=== PATIENT | female | born 1955 | race Caucasian/White ===

== ENCOUNTER 2018-07-09 11:20 | Inpatient (IN) | payer MEDICARE, MEDICAID ==
[~2018-07-09] VITALS: Ht 162.6 cm; Wt 56.4 kg
--- NOTE | 2018-07-09 11:20 | NUR ---
PT BIBA RA 79 syncopal episode "From clinic fainted BS 123", PT IS AAOX3 KITTITIAN SPEAKING, NOT IN RESPIRATORY DISTRESS, V/S STABLE, KEPT RESTED AND COMFORTABLE.
--- NOTE | 2018-07-09 11:24 | NUR ---
DR. BARBA AT BEDSIDE FOR EVAL.
--- NOTE | 2018-07-09 11:34 | NUR ---
LABS DRAWNED AND SENT TO LAB. AWAITING RESULTS.
[2018-07-09 11:37] LABS: BASOPHILS % (AUTO) 0.4 % (0.0-2.0); HEMATOCRIT 40 % (33-45); LYMPHOCYTES # (AUTO) 0.3 /CMM (0.8-4.8); MEAN CORPUSCULAR HGB CONC 35 g/dl (31.0-36.0); MEAN CORPUSCULAR VOLUME 90 fL (82-100); MONOCYTES % (AUTO) 23.2 % (2.0-12.0); NEUTROPHILS # (AUTO) 2.8 /CMM (1.8-8.9); NEUTROPHILS % (AUTO) 65.4 % (43.0-81.0); PLATELET COUNT (AUTO) 221 /CMM (150-450); RED BLOOD CELL COUNT(AUTO) 4.45 MIL/uL (4.0-5.2); WHITE BLOOD COUNT (AUTO) 4.2 K/uL (4.3-11.0)
[2018-07-09 11:43] LABS: CALCIUM, SERUM 8.5 mg/dL (8.5-10.1); CARBON DIOXIDE 28 mmol/L (21-32); CHLORIDE 92 mmol/L (98-107); CREATININE 0.6 mg/dL (0.6-1.3); GLUCOSE 108 mg/dL (74-106); POTASSIUM 3.2 mmol/L (3.5-5.1); SODIUM SERUM 127 mmol/L (136-145); UREA NITROGEN, BLOOD 7 mg/dL (7-18)
[2018-07-09] MEDS ORDERED: SIMV20TA2 PO (11:45)
[2018-07-09] MEDS ORDERED: MYCO250C PO (11:45)
[2018-07-09] MEDS ORDERED: CHOL100044 PO (11:45)
[2018-07-09] MEDS ORDERED: ATEN50TA PO (11:45)
[2018-07-09] MEDS ORDERED: FAMO-131 PO (11:45)
[2018-07-09] MEDS ORDERED: GABA-532 PO (11:45)
[2018-07-09] MEDS ORDERED: ASPI-1169 PO (11:45)
[2018-07-09] MEDS ORDERED: ALBU6.7H IH (11:45)
[2018-07-09] MEDS ORDERED: LOSA100T31 PO (11:45)
[2018-07-09] MEDS ORDERED: CARB200T PO (11:45)
[2018-07-09] MEDS ORDERED: PRED20TA PO (11:45)
[2018-07-09] MEDS ORDERED: CYCL5TAB PO (11:45)
[2018-07-09] MEDS ORDERED: IPRA12.9 IH (11:45)
[2018-07-09] MEDS ORDERED: HYDR-4076 PO (11:45)
[2018-07-09] MEDS ORDERED: CALC-7 PO (11:45)
[2018-07-09 11:49] LABS: ALANINE AMINOTRANSFERASE 21 U/L (12-78); ALBUMIN 3.6 g/dL (3.4-5.0); ALKALINE PHOSPHATASE 106 U/L (46-116); ASPARTATE AMINOTRANSFERASE 21 U/L (15-37); BILIRUBIN,DIRECT 0.1 mg/dL (0.0-0.2); BILIRUBIN,TOTAL 0.4 mg/dL (0.2-1.0); TOTAL PROTEIN, SERUM 6.8 g/dL (6.4-8.2)
--- NOTE | 2018-07-09 11:55 | NUR ---
PT IS WHEELED TO CT SCAN.
[2018-07-09 13:02] LABS: APPEARANCE,URINE Clear (CLEAR); BILIRUBIN,URINE Negative (NEGATIVE); BLOOD, URINE Negative Ery/uL (NEGATIVE); COLOR,URINE Yellow (YELLOW); KETONES,URINE Negative (NEGATIVE); LEUKOCYTE ESTERASE ,URINE Negative (NEGATIVE); NITRITE, URINE Negative (NEGATIVE); PH,URINE 7.5 (5.0-8.0); PROTEIN,URINE Negative (NEGATIVE); UGLUCOSE Negative (NEGATIVE); UROBILINOGEN,URINE 0.2 EU/dL (0.2)
--- NOTE | 2018-07-09 14:41 | NUR ---
REPORT GIVEN TO SOFIA FREEMAN FOR ARAM.
--- NOTE | 2018-07-09 15:00 | NUR ---
MARKETING SALES CONSULTANT. PT RECEIVED A&0X4, AT BEDSIDE, [place] SPEAKING ONLY. PT STARTED WITH TELE-SR. PT TOLERATING ROOM AIR WITHOUT DISTRESS AND SPO2 WNL AT 96%. PT DENIES PAIN. PT WITH IVC AT L AC INTACT, CONVERTED TO SL AND SALINE FLUSHED PATENT. PT VITALS CHARTED. PT AND ORIENTATED TO JUAREZ. PT BED IN LOWEST LOCKED POSITION WITH HANDRIALSX2 AND CALL HERNANDEZ WITHIN REACH. PT BREIFED ON POC AND IS WITHOUT CONCERN OR COMPLAINT AT THIS TIME.
[2018-07-09 15:29] VITALS: BP 133/91
[2018-07-09 16:00] VITALS: BP 128/81
[2018-07-09] MEDS ORDERED: ZOLPIDEM TARTRATE 5 MG TABLET PO PRN (16:00)
[2018-07-09] MEDS ORDERED: ACETAMINOPHEN 325 MG TABLET PO PRN (16:00)
[2018-07-09] MEDS ORDERED: ONDANSETRON HCL/PF 4 MG/2 ML VIAL IVP PRN (16:00)
[2018-07-09] MEDS ORDERED: MAGNESIUM HYDROXIDE 30 ML UDC PO PRN (16:00)
[2018-07-09] MEDS ORDERED: MAG HYDROX/AL HYDROX/SIMETH 30 ML UDC PO PRN (16:00)
[2018-07-09] MEDS ORDERED: Z GUARD REMEDY 2 OZ OINT TP PRN (16:00)
[2018-07-09] MEDS ORDERED: HYDROCODONE/APAP 5/325MG 1 EACH TABLET PO PRN (16:00)
[2018-07-09] MEDS: IV NS 0.9% 1,000 ML IV PRN (16:48)
[2018-07-09 16:56] VITALS: BP_SYST 111; BP_SYST 127; BP_SYST 128; BP_DIAS 75; BP_DIAS 77; BP_DIAS 81
--- NOTE | 2018-07-09 18:46 | NUR ---
CASE ASSEMBLER. PT REMAINS A&0X4, AT BEDSIDE. PT TELE-SR. PT TOLERATING ROOM AIR WITHOUT DISTRESS AND DENIES PAIN. PT WITH IVC AT L AC INTACT WITH IVF PER RX. PT BED IN LOWEST LOCKED POSITION WITH HANDRIALSX2 AND CALL HERNANDEZ WITHIN REACH. ALL DAY NURSE DUTIES ATTENDED TO AND PT WITHOUT CONCERN OR COMPLAINT AT THIS TIME. WILL ENDORSE TO NIGHT NURSE AT BEDSIDE FOR ARAM.
--- NOTE | 2018-07-09 19:30 | NUR ---
TELE/RN RECEIVE PATIENT AWAKE, ALERT ORIENTED, COMFORTABLE, NO C/O PAIN, NO DISTRESS NOTE, FALL PRECAUTION PER PROTOCOL, CALL LIGHT IN REACH. WILL MONITOR.
[2018-07-09 20:35] VITALS: BP 130/80
[2018-07-09] MEDS: MYCOPHENOLATE MOFETIL 250 MG CAPSULE PO SCH (21:14)
[2018-07-09] MEDS ORDERED: IPRATROPIUM NEB FS 0.5 MG/2.5 ML AMPUL.NEB NEB PRN (21:30)
[2018-07-09] MEDS ORDERED: POTASSIUM CHLORIDE 20 MEQ TAB.PRT.SR PO ONE (23:00)
[2018-07-10] VITALS (7 sets, daily range): BP systolic 126–146; BP diastolic 73–92
--- NOTE | 2018-07-10 01:05 | NUR ---
TELE/RN PATIENT IS SLEEPING AT THIS TIME, APPEAR COMFORTABLE, NO DISTRESS NOTED, CALL LIGHT IN REACH. WILL CONTINUE TO MONITOR.
[2018-07-10] MEDS ORDERED: ALBUTEROL FS 2.5 MG/3 ML VIAL.NEB NEB PRN (01:30)
[2018-07-10] MEDS: IV NS 0.9% 1,000 ML IV PRN (06:05)
--- NOTE | 2018-07-10 06:20 | NUR ---
TELLE/RN PATIENT IS AWAKE, ALERT, ORIENTED, COMFORTABLE, NO CHANGE IN CONDITION. ALL NEEDS ATTENDED AT THIS TIME, WILL CONTINUE TO MONITOR.
[2018-07-10 06:33] LABS: BASOPHILS % (AUTO) 0.9 % (0.0-2.0); EOSINOPHILS % (AUTO) 3.3 % (0.0-6.0); HEMATOCRIT 38 % (33-45); HEMOGLOBIN 13.2 g/dL (11.5-14.8); LYMPHOCYTES # (AUTO) 0.4 /CMM (0.8-4.8); MEAN CORPUSCULAR HGB CONC 35 g/dl (31.0-36.0); MEAN CORPUSCULAR VOLUME 90 fL (82-100); MONOCYTES # (AUTO) 0.8 /CMM (0.1-1.30); MONOCYTES % (AUTO) 22.9 % (2.0-12.0); NEUTROPHILS # (AUTO) 2.2 /CMM (1.8-8.9); NEUTROPHILS % (AUTO) 61.9 % (43.0-81.0); PLATELET COUNT (AUTO) 206 /CMM (150-450); RED BLOOD CELL COUNT(AUTO) 4.25 MIL/uL (4.0-5.2); WHITE BLOOD COUNT (AUTO) 3.6 K/uL (4.3-11.0)
[2018-07-10] MEDS: MYCOPHENOLATE MOFETIL 250 MG CAPSULE PO SCH ×2 (06:40→19:11)
[2018-07-10 07:11] LABS: CALCIUM, SERUM 8.2 mg/dL (8.5-10.1); CREATININE 0.4 mg/dL (0.6-1.3); MAGNESIUM 1.9 mg/dL (1.8-2.4); PHOSPHORUS 3.4 mg/dL (2.5-4.9); POTASSIUM 3.7 mmol/L (3.5-5.1)
--- NOTE | 2018-07-10 07:15 | NUR ---
RN OPENING/TELE NOTES RECEIVED PT. IS IN BED A&OX4. BREATHING ON ROOM AIR UNLABORED. NO S/S OF ACUTE DISTRESS. IV FLUIDS RUNNING AT 75 ML/HR. BED IS IN LOWEST, AND LOCKED POSITION. WALKER WITHIN REACH. INSTRUCTED PT. TO USE CALL LIGHT FOR ASSISTANCE. ALL NEEDS MET. WILL CONTINUE TO ASSESS AND MONITOR.
[2018-07-10 08:52] LABS: EOSINOPHILS % (MANUAL) 3 % (0-4); LYMPHOCYTES % (MANUAL) 9 % (16-48); MONOCYTES % (MANUAL) 20 % (0-11.0); NEUTROPHILS % (MANUAL) 68 (42-76)
[2018-07-10] MEDS: hydrALAZINE HCL 25 MG TABLET PO SCH ×2 (09:11→16:32)
[2018-07-10] MEDS: FAMOTIDINE (20 MG) 20 MG TABLET PO SCH ×2 (09:12→16:32)
[2018-07-10] MEDS: ATENOLOL 50 MG TABLET PO SCH (09:12)
[2018-07-10] MEDS: GABAPENTIN 100 MG CAPSULE PO SCH ×3 (09:12→16:31)
[2018-07-10] MEDS: CARBAMAZEPINE 200 MG TABLET PO SCH ×2 (09:13→16:32)
[2018-07-10] MEDS: CALCIUM CARB 250MG /VITAMIN D 1 UDTAB PO SCH ×2 (09:13→16:31)
[2018-07-10] MEDS: LOSARTAN POTASSIUM 50 MG TABLET PO SCH (09:13)
[2018-07-10] MEDS: CHOLECALCIFEROL 1,000 UNIT TABLET (VIT D3) PO SCH (09:13)
[2018-07-10] MEDS: ASPIRIN 81 MG TAB.CHEW PO SCH (09:14)
[2018-07-10] MEDS: predniSONE 10 MG TABLET PO SCH (09:14)
--- NOTE | 2018-07-10 09:32 | NUR ---
ORTHOSTATIC BP LYING 128/73, PULSE 83 SITTING 134/84, PULSE 81 STANDING 124/75, PULSE 81
--- NOTE | 2018-07-10 13:00 | NUR ---
WOUND CARE CONSULT: PT PRESENTS AMBULATORY AND CONTINENT WITH SOME SCARRING, HEALED SCRATCHES ON LOWER BACK AND BUTTOCKS. NO DRAINAGE, REDNESS OR TENDERNESS NOTED. WILL SEE PRN.
[2018-07-10 15:47] LABS: URINE SODIUM, RANDOM 58 mmol/l (40-220)
[2018-07-10 15:53] LABS: OSMOLALITY,URINE 324 mOS/kg (340-1090)
[2018-07-10] MEDS ORDERED: SIMVASTATIN 20 MG TABLET PO SCH (18:00)
[2018-07-10] MEDS ORDERED: CYCLOBENZAPRINE 10 MG TABLET PO SCH (18:00)
--- NOTE | 2018-07-10 20:02 | NUR ---
RN CLOSING/TELE NOTES PT. IS IN BED A&OX4. BREATHING ON ROOM AIR UNLABORED. NO S/S OF ACUTE DISTRESS. IV FLUIDS RUNNING AT 75 ML/HR. BED IS IN LOWEST, AND LOCKED POSITION. WALKER WITHIN REACH. INSTRUCTED PT. TO USE CALL LIGHT FOR ASSISTANCE. ALL NEEDS MET. WILL ENDORSE REPORT.
--- NOTE | 2018-07-10 20:08 | NUR ---
TELE/RN OPENING NOTES PT RECEIVED AWAKE, FAMILY AT BEDSIDE. LITHUANIAN SPEAKING. ON ROOM AIR, BREATHING EVEN AND UNLABORED. DENIES SOB AND PAIN. ON TELE MONITOR SHOWING SR 66. IV TO LAC PATENT AND INTACT RUNNING IVF ORDERED. BED IN LOW/LOCKED POSITION WITH CALL LIGHT IN REACH, BILATERAL UPPER SIDE RAILS IN PLACE AND BED ALARM ON FOR SAFETY. WILL CONTINUE TO MONITOR
[2018-07-11] VITALS: BP 125/60
[2018-07-11] MEDS: IV NS 0.9% 1,000 ML IV PRN (01:03)
[2018-07-11 04:00] VITALS: BP 130/70
[2018-07-11] MEDS: MYCOPHENOLATE MOFETIL 250 MG CAPSULE PO SCH (06:08)
[2018-07-11 06:35] LABS: BASOPHILS % (AUTO) 0.6 % (0.0-2.0); EOSINOPHILS % (AUTO) 7.1 % (0.0-6.0); HEMATOCRIT 39 % (33-45); LYMPHOCYTES # (AUTO) 0.5 /CMM (0.8-4.8); LYMPHOCYTES % (AUTO) 13.1 % (20.0-44.0); MEAN CORPUSCULAR HGB CONC 34 g/dl (31.0-36.0); MEAN CORPUSCULAR VOLUME 91 fL (82-100); MONOCYTES # (AUTO) 0.9 /CMM (0.1-1.30); MONOCYTES % (AUTO) 24.1 % (2.0-12.0); NEUTROPHILS % (AUTO) 55.1 % (43.0-81.0); PLATELET COUNT (AUTO) 199 /CMM (150-450); RED BLOOD CELL COUNT(AUTO) 4.23 MIL/uL (4.0-5.2); WHITE BLOOD COUNT (AUTO) 3.7 K/uL (4.3-11.0)
--- NOTE | 2018-07-11 06:41 | NUR ---
TELE/RN CLOSING NOTES PT ASLEEP, OPENS EYES TO NAME. A/OX4. ON ROOM AIR, BREATHING EVEN AND UNLABORED. DENIES SOB AND PAIN AT THIS TIME. HOB ELEVATED. IV TO LAC PATENT AND INTACT RUNNING IVF ORDERED. FALL PRECAUTIONS. NO SIGNIFICANT CHANGES OVERNIGHT. ALL NEEDS MET. BED REMAINS IN LOW/ LOCKED POSITION WITH CALL LIGHT IN REACH. UPPER SIDE RAILS IN PLACE AND BED ALARM ON FOR SAFETY. REMAINS ON TELE MONITOR SHOWING SR/SB HR 57. WILL ENDORSE TO DAY SHIFT RN ARAM.
[2018-07-11 06:48] LABS: CALCIUM, SERUM 8.4 mg/dL (8.5-10.1); CREATININE 0.5 mg/dL (0.6-1.3); MAGNESIUM 1.7 mg/dL (1.8-2.4); PHOSPHORUS 3.3 mg/dL (2.5-4.9); POTASSIUM 3.4 mmol/L (3.5-5.1)
[2018-07-11 07:16] LABS: URINE SODIUM, RANDOM 85 mmol/l (40-220)
[2018-07-11 07:17] LABS: OSMOLALITY,URINE 290 mOS/kg (340-1090)
[2018-07-11 07:20] LABS: BAND % (MANUAL) 3 % (0.0-5.0); EOSINOPHILS % (MANUAL) 11 % (0-4); LYMPHOCYTES % (MANUAL) 12 % (16-48); MONOCYTES % (MANUAL) 22 % (0-11.0); NEUTROPHILS % (MANUAL) 52 (42-76)
[2018-07-11 07:22] LABS: THYROID STIMULATING HORMONE 2.263 uIU/mL (0.358-3.74); URIC ACID 2.4 mg/dL (2.6-7.2)
[2018-07-11 08:00] VITALS: BP 149/78
--- NOTE | 2018-07-11 08:00 | NUR ---
automotive lube technician Opening Note Patient asleep, resting in bed. No acute distress, SOB or complaints of chest pain. Alert and oriented x4, able to verbalize needs. Greek/Luxembourgish speaking. security monitor, normal sinus rhythm at 70 bpm. Respirations even and unlabored on room air. Peripheral IV to the left AC 20 gauge, intact, patent and saline locked. Fall and Safety precautions in place: bed in lowest and locked position, bed alarm on, side rails up x2, call light and personal possessions within reach. Oriented to safety measures and use of call light, verbalized understanding. Will continue to monitor and intervene as needed.
[2018-07-11] MEDS: CHOLECALCIFEROL 1,000 UNIT TABLET (VIT D3) PO SCH (08:44)
[2018-07-11] MEDS: CALCIUM CARB 250MG /VITAMIN D 1 UDTAB PO SCH (08:44)
[2018-07-11] MEDS: CARBAMAZEPINE 200 MG TABLET PO SCH (08:44)
[2018-07-11] MEDS: FAMOTIDINE (20 MG) 20 MG TABLET PO SCH (08:45)
[2018-07-11] MEDS: GABAPENTIN 100 MG CAPSULE PO SCH ×2 (08:45→12:21)
[2018-07-11] MEDS: POTASSIUM CHLORIDE 20 MEQ TAB.PRT.SR PO SCH ×2 (08:45→10:14)
[2018-07-11] MEDS: hydrALAZINE HCL 25 MG TABLET PO SCH (08:45)
[2018-07-11] MEDS: ASPIRIN 81 MG TAB.CHEW PO SCH (08:45)
[2018-07-11 08:46] VITALS: BP 149/78
[2018-07-11] MEDS: LOSARTAN POTASSIUM 50 MG TABLET PO SCH (08:46)
[2018-07-11] MEDS: predniSONE 10 MG TABLET PO SCH (08:46)
[2018-07-11] MEDS: ATENOLOL 50 MG TABLET PO SCH (08:46)
[2018-07-11] MEDS: Magnesium 1GM/D5W 100ML PREMIX 100 ML IV SCH ×2 (10:14→11:13)
--- NOTE | 2018-07-11 16:30 | NUR ---
MS RN Note Patient discharged to hospital lobby via wheelchair with JOSÉ MIGUEL Welsh, in stable condition, family present. No acute distress, SOB or complaints of chest pain. Alert and oriented x4, able to verbalize needs. Estonian/Japanese speaking. Ambulates with steady gait and front-wheeled walker. Peripheral IV to the left AC 20 gauge removed, catheter tip intact. No redness, swelling or bleeding to site noted. Skin assessment and discharge photos refused per patient, "I am already dressed and ready to leave". Educated on importance of skin assessment, refused 3 times stating she does not have any skin issues at this time. Personal belongings and clothing items discharged with patient, verified and acknowledged via signature on belongings form. Discharge instructions and Exitcare provided to patient and spouse, assisted with aircraft dispatcher, verbalized understanding of material and acknowledged via signature on discharge form. Follow-up with primary care provider within one week of discharge from hospital. No questions at this time. Patient leaving in private car with spouse Naldo.
== END 2018-07-11 16:30 | disposition home or self-care (01) | DRG 312 ==
LOC: ER 11:27 → TELE 14:35 → MED 07-11 08:37
PROVIDERS: ADMIT Internal Medicine; ATTEND Internal Medicine
DX: R55 Syncope and collapse (principal); M48.56XA Collapsed vertebra, not elsewhere classified, lumbar region, initial encounter for fracture; E27.40 Unspecified adrenocortical insufficiency; E87.1 Hypo-osmolality and hyponatremia; I25.10 Atherosclerotic heart disease of native coronary artery without angina pectoris; D89.9 Disorder involving the immune mechanism, unspecified; E87.6 Hypokalemia; E78.5 Hyperlipidemia, unspecified; J84.10 Pulmonary fibrosis, unspecified; I10 Essential (primary) hypertension; K21.9 Gastro-esophageal reflux disease without esophagitis; Z90.49 Acquired absence of other specified parts of digestive tract; Z88.8 Allergy status to other drugs, medicaments and biological substances; Z79.82 Long term (current) use of aspirin; Z79.899 Other long term (current) drug therapy; I70.0 Atherosclerosis of aorta; G89.29 Other chronic pain; T42.1X5A Adverse effect of iminostilbenes, initial encounter; Y92.9 Unspecified place or not applicable; Z82.49 Family history of ischemic heart disease and other diseases of the circulatory system; E86.1 Hypovolemia
CPT/HCPCS: 36415; 70450-TC; 71045-TC; 80048-TC; 80061-TC; 80076-TC; 80156-TC; 81000-TC; 82962-TC; 83735-TC; 83935-TC; 84100-TC; 84300-TC; 84443-TC; 84484-TC; 84550-TC; 85025-TC; 85730-TC; 87081-TC; 93307-TC; 93880-TC; 95819-TC; G0378; J3475; J7030; J7517